=== PATIENT | male | born 1990 | race Caucasian/White ===

== ENCOUNTER → 2018-11-10 | Outpatient (CLI) | payer OTHER ==
--- NOTE | 2018-11-10 22:44 | MR ---
EXAMINATION TYPE: MR knee LT wo con DATE OF EXAM: 11/10/2018 COMPARISON: Prior outside MRI May 14, 2001, prior report not available. HISTORY: Pain in left knee and unilateral primary osteoarthritis per order. TECHNIQUE: Multiplanar, multisequence images of the knee is performed without IV contrast. FINDINGS: MEDIAL MENISCUS: Anterior and posterior horns are intact without tear. LATERAL MENISCUS: Anterior and posterior horns are intact without tear. CRUCIATE LIGAMENTS: The anterior and posterior cruciate ligaments are intact and unremarkable. COLLATERAL LIGAMENTS: The medial collateral ligament and lateral collateral ligament complex are inta ct and unremarkable. EXTENSOR MECHANISM: Visualized quadriceps and patellar tendons are intact. EFFUSION: No significant suprapatellar joint effusion. POPLITEAL CYST: Small popliteal/stone cyst near axial image 16. TRICOMPARTMENT SPACES: Moderate narrowing patellofemoral compartment is present. Mild medial and late ral tibial compartment spurring is seen. 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 BONE MARROW SIGNAL: No focal abnormal marrow signal is appreciated. OTHER: No additional significant abnormality is appreciated. IMPRESSION: 1. No meniscal or ligamentous tear is seen. 2. Moderate patellofemoral joint degenerative change. Mild degenerative change otherwise. 3. Small popliteal cyst.
== END ==
LOC: RADMRIMAIN 18:37
PROVIDERS: ATTEND Orthopaedic Surgery Sports Medicine
DX: M17.12 Unilateral primary osteoarthritis, left knee (principal); M71.22 Synovial cyst of popliteal space [Baker], left knee

== ENCOUNTER 2022-06-26 15:50 | Emergency (ER) | payer BC, OTHER ==
[2022-06-26 16:02] VITALS: BP 138/81; PULSE 103; RESP 20; TEMP 98.5
[2022-06-26] MEDS ORDERED: KETOROLAC 15 MG/ML 1 ML VIAL IM STA (16:22)
[2022-06-26] MEDS ORDERED: ORPHENADRINE 30 MG/ML 2 ML VIAL IM STA (16:24)
[2022-06-26] MEDS ORDERED: LIDOCAINE 5% PATCH TOPICAL SCH (16:30)
--- NOTE | 2022-06-26 16:36 | ED ---
Back Pain HPI - General Chief Complaint: Back Pain/Injury Stated Complaint: Back pain Time Seen by Provider: 06/26/22 16:07 Source: patient Limitations: no limitations - History of Present Illness Initial Comments: Patient is a 31-year-old otherwise healthy male who presents to the emergency department with a chief complaint of left lower back pain. Patient states he woke up with the pain this morning. Denies injury. Describes the pain as sharp in the left lower back without radiation. Pain has been consistently in the same spot throughout the day. Pain is worse with rotation of the back. He denies pain, numbness, tingling of the legs. Denies focal weakness. Denies numbness and tingling in the groin and buttock region. Denies loss of bowel or bladder incontinence and retention. Denies history of cancer. Denies fever, chills, shortness of breath, chest pain, abdominal pain, nausea, vomiting, burning with urination, increased urinary frequency/urgency, and blood in the urine. Denies history of kidney stone, kidney infection, urinary tract infection. - Related Data Previous Rx's Medication Instructions Recorded Cyclobenzaprine [Flexeril] 10 mg PO TID PRN #15 tab 06/26/22 Ketorolac [Toradol] 10 mg PO Q8HR PRN 5 Days #15 tab 06/26/22 Lidocaine 5% Patch [Lidoderm] 1 patch TOPICAL DAILY PRN #5 patch 06/26/22 Allergies Allergy/AdvReac Type Severity Reaction Status Date / Time No Known Allergies Allergy Verified 06/26/22 17:09 Review of Systems ROS Statement: Those systems with pertinent positive or pertinent negative responses have been documented in the HPI. ROS Other: All systems not noted in ROS Statement are negative. Past Medical History Past Medical History: No Reported History History of Any Multi-Drug Resistant Organisms: None Reported Additional Past Surgical History / Comment(s): knee Past Psychological History: No Psychological Hx Reported Smoking Status: Never smoker Past Alcohol Use History: Occasional Past Drug Use History: None Reported General Exam Limitations: no limitations General appearance: alert, in no apparent distress Head exam: Present: atraumatic, normocephalic, normal inspection Eye exam: Present: normal appearance, PERRL, EOMI. Absent: scleral icterus, conjunctival injection, periorbital swelling Respiratory exam: Present: normal lung sounds bilaterally. Absent: respiratory distress, wheezes, rales, rhonchi, stridor Cardiovascular Exam: Present: regular rate, normal rhythm, normal heart sounds. Absent: systolic murmur, diastolic murmur, rubs, gallop, clicks GI/Abdominal exam: Present: soft, normal bowel sounds. Absent: distended, tenderness, guarding, rebound, rigid Back exam: Present: normal inspection, full ROM, paraspinal tenderness (left lumbar). Absent: CVA tenderness (R), CVA tenderness (L), rash noted Neurological exam: Present: alert, oriented X3, CN II-XII intact Psychiatric exam: Present: normal affect, normal mood Skin exam: Present: warm, dry, intact, normal color. Absent: rash Course Vital Signs 06/26/22 15:58 Temperature 98.5 F Pulse Rate 103 H Respiratory 20 Rate Blood Pressure 138/81 O2 Sat by Pulse 100 Oximetry Medical Decision Making - Medical Decision Making This is a 31-year-old healthy male who presents to the emergency department for evaluation of left lower back pain. Thorough history and examination were performed. Patient is well-appearing. No red flag symptoms. There is tenderness with palpation of the left lumbar paravertebral muscles. Pain is worse with left lateral rotation of the spine. No injury. Patient was treated for musculoskeletal back pain in the emergency department with improvement of symptoms. He'll be discharged with symptomatic treatment and instruction to follow-up with his primary care provider. Dr. Diaz is my attending. - Lab Data Lab Results 06/26/22 Range/Units 16:52 Urine Color Yellow Urine Appearance Clear (Clear) Urine pH 7.5 (5.0-8.0) Ur Specific [place] 1.024 (1.001-1.035) Urine Protein Negative (Negative) Urine Glucose (UA) Negative (Negative) Urine Ketones Negative (Negative) Urine Blood Negative (Negative) Urine Nitrite Negative (Negative) Urine Bilirubin Negative (Negative) Urine Urobilinogen <2.0 (<2.0) mg/dL Ur Leukocyte Esterase Negative (Negative) Disposition Clinical Impression: Mechanical back pain Disposition: HOME SELF-CARE Condition: Good Instructions (If sedation given, give patient instructions): Acute Low Back Pain (ED) Additional Instructions: Take medication as directed. Applying warm or cold compress will help pain as well. Lightly stretch the back 3 times a day as we discussed. Follow up with primary care provider one to 2 days. Return to the emergency department if you experience new, concerning, or worsening symptoms. Prescriptions: Cyclobenzaprine [Flexeril] 10 mg PO TID PRN #15 tab PRN Reason: Muscle Spasm Lidocaine 5% Patch [Lidoderm] 1 patch TOPICAL DAILY PRN #5 patch PRN Reason: Pain Ketorolac [Toradol] 10 mg PO Q8HR PRN 5 Days #15 tab PRN Reason: Pain Is patient prescribed a controlled substance at d/c from ED?: No Referrals: Isidoro Wu DO [Primary Care Provider] - 1-2 days Time of Disposition: 17:28
[2022-06-26 17:16] LABS: Appearance,Urine Clear (Clear); Bilirubin,Urine Negative (Negative); Blood,Urine Negative (Negative); Color,Urine Yellow; Glucose,Urine (UA) Negative (Negative); Ketones,Urine Negative (Negative); Leukocyte Esterase,Urine Negative (Negative); Nitrite,Urine Negative (Negative); PH, Urine 7.5 (5.0-8.0); Protein,Urine Negative (Negative); Specific Gravity,Urine 1.024 (1.001-1.035); Urobilinogen,Urine <2.0 mg/dL (<2.0)
== END 2022-06-26 17:48 | disposition home or self-care (01) ==
LOC: EC 15:50
DX: M54.50 Low back pain, unspecified (principal)
CPT/HCPCS: 81003; 99283; 96372; J2360; J1885

== ENCOUNTER 2022-06-28 13:04 | Emergency (ER) | payer BC ==
[2022-06-28] MEDS ORDERED: KETOROLAC 15 MG/ML 1 ML VIAL IM STA (13:40)
--- NOTE | 2022-06-28 14:12 | ED ---
General Adult HPI - General Chief complaint: Back Pain/Injury Stated complaint: Back Pain Time Seen by Provider: 06/28/22 13:30 Source: patient, RN notes reviewed, old records reviewed Mode of arrival: ambulatory Limitations: no limitations - History of Present Illness Initial comments: 31-year-old male presents for left lower back pain and flank pain. Patient states the pain is now coming around to his abdomen and groin. He denies any injury. Denies overuse. Denies fever. He did have one episode of vomiting this morning which she believes is secondary to pain. - Related Data Previous Rx's Medication Instructions Recorded Cyclobenzaprine [Flexeril] 10 mg PO TID PRN #15 tab 06/26/22 Ketorolac [Toradol] 10 mg PO Q8HR PRN 5 Days #15 tab 06/26/22 Lidocaine 5% Patch [Lidoderm] 1 patch TOPICAL DAILY PRN #5 patch 06/26/22 Ibuprofen [Motrin] 600 mg PO Q8HR PRN #24 tab 06/28/22 Allergies Allergy/AdvReac Type Severity Reaction Status Date / Time No Known Allergies Allergy Verified 06/28/22 13:05 Review of Systems ROS Statement: Those systems with pertinent positive or pertinent negative responses have been documented in the HPI. ROS Other: All systems not noted in ROS Statement are negative. Past Medical History Past Medical History: No Reported History History of Any Multi-Drug Resistant Organisms: None Reported Additional Past Surgical History / Comment(s): knee Past Psychological History: No Psychological Hx Reported Smoking Status: Never smoker Past Alcohol Use History: Occasional Past Drug Use History: None Reported General Exam Limitations: no limitations General appearance: alert, in no apparent distress Head exam: Present: atraumatic, normocephalic Eye exam: Present: normal appearance, PERRL ENT exam: Present: normal exam Neck exam: Present: normal inspection. Absent: tenderness, meningismus Respiratory exam: Present: normal lung sounds bilaterally. Absent: respiratory distress, wheezes Cardiovascular Exam: Present: regular rate, normal rhythm GI/Abdominal exam: Present: soft. Absent: distended, tenderness, guarding Extremities exam: Present: normal inspection, normal capillary refill. Absent: calf tenderness Back exam: Present: CVA tenderness (L), paraspinal tenderness. Absent: vertebral tenderness Neurological exam: Present: alert, oriented X3, CN II-XII intact. Absent: motor sensory deficit Psychiatric exam: Present: normal affect, normal mood Skin exam: Present: warm, dry, intact. Absent: cyanosis, diaphoretic Course Vital Signs 06/28/22 13:05 Temperature 98.1 F Pulse Rate 88 Respiratory 18 Rate Blood Pressure 168/99 O2 Sat by Pulse 99 Oximetry Medical Decision Making - Medical Decision Making 31-year-old male for reevaluation of left sided low back pain and flank pain. No injury reported. Patient's well-appearing. Does appear musculoskeletal but he had some complaints of pain radiating into the abdomen I performed a urinalysis which was negative for significant hematuria or signs of infection. CT was performed which was negative for renal stone or hydronephrosis, normal appendix visualized, normal vertebrae without acute process. Patient's symptoms do appear musculoskeletal. A anti-inflammatory will be added to his current medication of Flexeril and lidocaine. He should he should follow-up with his primary care physician return with worsening or changing symptoms. - Lab Data Lab Results 06/28/22 Range/Units 13:45 Urine Color Yellow Urine Appearance Cloudy (Clear) Urine pH 6.5 (5.0-8.0) Ur Specific [place] 1.022 (1.001-1.035) Urine Protein Trace H (Negative) Urine Glucose (UA) Negative (Negative) Urine Ketones Negative (Negative) Urine Blood Negative (Negative) Urine Nitrite Negative (Negative) Urine Bilirubin Negative (Negative) Urine Urobilinogen 2.0 (<2.0) mg/dL Ur Leukocyte Esterase Negative (Negative) Urine RBC 1 (0-5) /hpf Urine WBC 1 (0-5) /hpf Urine Mucus Many H (None) /hpf Disposition Clinical Impression: Mechanical back pain Disposition: HOME SELF-CARE Condition: Good Instructions (If sedation given, give patient instructions): Acute Low Back Pain (ED) Prescriptions: Ibuprofen [Motrin] 600 mg PO Q8HR PRN #24 tab PRN Reason: Pain Is patient prescribed a controlled substance at d/c from ED?: No Referrals: Isidoro Wu DO [Primary Care Provider] - 1-2 days Time of Disposition: 15:23
[2022-06-28 14:20] LABS: Appearance,Urine Cloudy (Clear); Bilirubin,Urine Negative (Negative); Blood,Urine Negative (Negative); Color,Urine Yellow; Glucose,Urine (UA) Negative (Negative); Ketones,Urine Negative (Negative); Leukocyte Esterase,Urine Negative (Negative); Mucus,Urine Many /hpf; Nitrite,Urine Negative (Negative); PH, Urine 6.5 (5.0-8.0); Protein,Urine Trace (Negative); RBC,Urine 1 /hpf (0-5); Specific Gravity,Urine 1.022 (1.001-1.035); WBC,Urine 1 /hpf (0-5)
--- NOTE | 2022-06-28 15:12 | CT ---
EXAMINATION TYPE: CT abdomen pelvis wo con DATE OF EXAM: 06/28/2022 COMPARISON: None HISTORY: lt flank pain CT DLP: 2214.4 mGycm Automated exposure control for dose reduction was used. Images obtained from the diaphragm to the floor the pelvis with no contrast. The lung bases are clear. No pleural effusion. Heart size is normal. No pericardial effusion. Liver spleen pancreas and stomach gallbladder appear intact. The bile ducts are not dilated. There is no adrenal mass. Kidneys show normal size and contour. No hydronephrosis. Ureters are not di lated. There is no retroperitoneal adenopathy. The bladder distends smoothly. Appendix is medial and appears normal. There is no mesenteric edema. No ascites or free air. No sign of a bowel obstruction. The lumbar vertebrae have normal alignment. Posterior elements are intact. No compression fracture. The bony pelvis is intact. The hip joints are intact. IMPRESSION: Normal appendix. Negative CT scan abdomen and pelvis. No renal stone or obstruction.
[2022-06-28 15:38] VITALS: BP 143/82; PULSE 97; RESP 15; TEMP 98.2
== END 2022-06-28 15:43 | disposition home or self-care (01) ==
LOC: EC 13:04
DX: M54.50 Low back pain, unspecified (principal); R10.9 Unspecified abdominal pain
CPT/HCPCS: 81001; 74176; 99284; 96372; J1885